=== PATIENT | female | born 1950 | race Caucasian/White ===

== ENCOUNTER 2016-10-22 10:33 | Outpatient (CLI) | payer OTHER ==
--- NOTE | 2016-10-22 12:45 | DIAGNOSTIC IMAGING REPORT ---
PROCEDURE: MG BILATERAL DIAGNOSTIC W/CAD INDICATION: LT BREAST MASS TECHNIQUE: CC and MLO digital views of each breast with true-lateral digital view of the left breast. In addition, spot compression CC and MLO views were obtained of the left upper outer quadrant. Finally, high-resolution left breast ultrasound was performed (18 mHz). COMPARISON: Mammogram at 04/19/2007. FINDINGS: MAMMOGRAM: Computer-aided detection applied. Mildly dense pattern. No evidence of a mass, architectural distortion or suspicious microcalcifications corresponding to the symptomatic area. There are scattered dystrophic calcifications BREAST ULTRASOUND: Ultrasound of the symptomatic area in the left upper outer quadrant demonstrates normal breast parenchyma. Ultrasound of the left axilla demonstrates a 1.5 cm normal appearing lymph node. IMPRESSION: 1. Negative mammogram and left breast ultrasound 2. 1.5 cm normal appearing left axillary lymph node RESULT CODE: 1- Negative. A. A negative report should not delay biopsy if a dominant or clinically suspicious mass is present. 10-15% of cancers are not identified by x-ray. B. A negative report may reinforce clinical impression. C. Adenosis and dense breasts may obscure an underlying neoplasm. D. False positive reports average 6-10%. E.. A yearly screening mammogram is recommended. A reminder letter will be scheduled.
--- NOTE | 2016-10-22 14:48 | DIAGNOSTIC IMAGING REPORT ---
PROCEDURE: ABDOMEN/PELVIS WITH CONTRAST CLINICAL INDICATION: F/U ADRENAL MASS TECHNIQUE: Initial axial CT images were obtained through the abdomen precontrast. Subsequently, 125 ml of Isovue 300 were injected intravenously and axial images were obtained of the abdomen and pelvis with sagittal and coronal reformations. Axial CT images 15-minute post contrast were acquired. COMPARISON: None available. FINDINGS: ABDOMEN: Precontrast: Well-defined, smoothly marginated bilateral adrenal masses are present. There are two on the right, the larger measures 3.9 cm and the smaller measures 13 mm. The mass measures 2.5 cm on the left. Precontrast density of the larger right mass measures 1 HU and the smaller mass measures -10 Hounsfield units. The left mass Hounsfield units measure -7. Postcontrast: There is slight internal complexity to the adrenal masses in the form of thin wispy septations. There is mild enhancement. Morphology remains benign. The gallbladder is surgically absent. There is an ileocolonic anastomosis in the right abdomen. The pancreas is diminutive but without ductal dilatation or mass. There is a prominent duodenal diverticulum arising from the second portion. Clear lung bases. Normal sized heart. No hiatal hernia. The liver, kidneys, and spleen are normal. The abdominal aorta is normal in its course and caliber. Moderate mid to distal calcific atherosclerosis. Numerous nonenlarged periaortic lymph nodes are present. There are no suspicious calcifications, or masses. The stomach, upper bowel loops, and mesentery are normal. Intact anterior abdominal wall. No free fluid or inflammation. The sigmoid colon is partially decompressed and demonstrates long segment mild wall thickening and mild diverticulosis. No acute inflammation. PELVIS: The appendix and pelvic small bowel loops are normal. Normal amount of stool in the colon and rectum. The uterus is surgically absent. Residual ovarian tissue appears normal. The urinary bladder, and pelvic vessels are normal. No adenopathy, free fluid, or pelvic mass. Mild pelvic floor prolapse. Bone island in the right ischium tuberosity, right ischium, left femoral head, right ilium. Postsurgical changes in the posterior elements of the lower lumbar spine. Severe disc degeneration at L4-5 and L5-S1. Remote, questionable avulsion fracture of the left superior acetabular rim. Enthesopathy of the greater tuberosities bilaterally. IMPRESSION: 1. There are three low-density adrenal masses, two on the right and one on the left with precontrast Hounsfield units diagnostic of benign adrenal adenomas. 2. Status post cholecystectomy, hysterectomy, right hemicolectomy with ileocolonic anastomosis, and lumbar laminectomy. 3. Mild sigmoid diverticulosis without acute diverticulitis. 4. Degenerative and postsurgical changes involving the lumbar spine. All CT scans at this facility use dose modulation, iterative reconstruction, and/or weight-based dosing when appropriate to reduce radiation dose to as low as reasonably achievable.
== END 2016-10-22 23:00 ==
LOC: MAM SRH 10:33
DX: N63 Unspecified lump in breast (principal); K57.30 Diverticulosis of large intestine without perforation or abscess without bleeding